=== PATIENT | male | born 1985 | race Two or more races ===

== ENCOUNTER 2016-03-12 11:43 | Emergency (ER) | payer OTHER ==
[~2016-03-12] VITALS: Ht 177.8 cm; Wt 81.6 kg
[2016-03-12] MEDS ORDERED: FAMOTIDINE 20 MG/2 ML VIAL IVP ONE (12:30)
[2016-03-12] MEDS ORDERED: LIDO:MAALOX:DONNATAL 1:1:1 15 ML SINGLE DOSE SWSW ONE (12:30)
[2016-03-12 13:11] LABS: ANION GAP 12 (6-14); BLOOD UREA NITROGEN 11 mg/dL (8-26); CALCIUM 9.4 mg/dL (8.5-10.1); CARBON DIOXIDE 26 mmol/L (21-32); CHLORIDE 103 mmol/L (98-107); CREATININE 0.9 mg/dL (0.7-1.3); GFR 98.4; GLUCOSE 104 mg/dL (70-99); POTASSIUM 4.2 mmol/L (3.5-5.1); SODIUM 141 mmol/L (136-145)
[2016-03-12 13:12] LABS: BASO % 1 % (0-3); EOS % 1 % (0-3); HEMATOCRIT 45.4 % (39.0-53.0); HEMOGLOBIN 15.2 g/dL (13.0-17.5); LYMPH # 2.4 x10^3/uL (1.0-4.8); LYMPH % 38 % (24-48); MEAN CORPUSCULAR HEMOGLOBIN 31 pg (25-35); MEAN CORPUSCULAR HGB CONC 34 g/dL (31-37); MEAN CORPUSCULAR VOLUME 91 fL (79-100); MONO % 7 % (0-9); NEUT % 53 % (31-73); PLATELET COUNT 195 x10^3/uL (140-400); RED BLOOD COUNT 4.97 x10^6/uL (4.30-5.70); RED CELL DISTRIBUTION WIDTH 12.8 % (11.5-14.5); WHITE BLOOD COUNT 6.2 x10^3/uL (4.0-11.0)
[2016-03-12 13:17] LABS: ALBUMIN 4.3 g/dL (3.4-5.0); ALK PHOS 67 U/L (46-116); ALT (SGPT) 85 U/L (16-63); AST (SGOT) 42 U/L (15-37); DIRECT BILIRUBIN < 0.1 mg/dL (0.0-0.2); TOTAL BILIRUBIN 0.4 mg/dL (0.2-1.0)
[2016-03-12] MEDS ORDERED: FAMO20TA5 PO (13:44)
--- NOTE | 2016-03-12 13:44 | PHYS DOC ---
Past Medical History Past Medical History: Anxiety, GERD Past Surgical History: No Surgical History Alcohol Use: None Drug Use: None Adult General Chief Complaint Chief Complaint: ABDOMINAL PAIN HPI HPI Patient is a 30 year old male who presents with one month of epigastric abdominal discomfort. He has a constant burning pain and intermittent aching pain. States that he is undergoing significant stress over the past month. He has been evaluated for this some years ago, but did not undergo any imaging or surgery or EGD. He is taking some narcotic pain medicine as prescribed from his primary care doctor, but he is not otherwise taking medication. He is able to eat without nausea or pain. He denies diarrhea or constipation or dysuria. He denies fever or chills. No bloody or dark stools. Review of Systems Review of Systems Constitutional: Denies fever or chills [] Eyes: Denies change in visual acuity, redness, or eye pain [] HENT: Denies nasal congestion or sore throat [] Respiratory: Denies cough or shortness of breath [] Cardiovascular: No additional information not addressed in HPI [] GI: Denies nausea, vomiting, bloody stools or diarrhea [] : Denies dysuria or hematuria [] Musculoskeletal: Denies back pain or joint pain [] Integument: Denies rash or skin lesions [] Neurologic: Denies headache, focal weakness or sensory changes [] Endocrine: Denies polyuria or polydipsia [] Current Medications Current Medications Current Medications Medications (Trade) Dose Ordered Sig/Matthew Start Time Stop Time Status Last Admin Dose Admin Famotidine (Pepcid) 20 mg 1X ONCE 03/12/16 12:30 03/12/16 12:38 DC 03/12/16 13:01 20 MG Multi-Ingredient Mouthwash/Gargle (Gi Cocktail Single Dose) 15 ml 1X ONCE 03/12/16 12:30 03/12/16 12:38 DC 03/12/16 13:02 15 ML Pantoprazole Sodium (Protonix) 40 mg 1X ONCE 03/12/16 13:45 03/12/16 13:46 DC 03/12/16 13:49 40 MG Allergies Allergies Allergies Coded Allergies Type Severity Reaction Last Updated Verified No Known Drug Allergies 03/12/16 No Physical Exam Physical Exam Constitutional: Well developed, well nourished, no acute distress, non-toxic appearance. [] HENT: Normocephalic, atraumatic, bilateral external ears normal, oropharynx moist, nose normal. [] Eyes: PERRLA, EOMI. [] Neck: Normal range of motion, supple. [] Cardiovascular:Heart rate regular rhythm [] Lungs & Thorax: Bilateral breath sounds clear to auscultation [] Abdomen: Bowel sounds normal, soft, mild epigastric tenderness, no guarding or rebound. [] Skin: Warm, dry, no erythema, no rash. [] Back: No tenderness, no CVA tenderness. [] Extremities: No tenderness, ROM intact, no edema. [] Neurologic: Alert and oriented X 3, normal motor function, normal sensory function, no focal deficits noted. [] Psychologic: Affect normal, judgement normal, mood normal. [] Current Patient Data Vital Signs Vital Signs Date Time Temp Pulse Resp B/P Pulse Ox O2 Delivery O2 Flow Rate FiO2 03/12/16 14:00 58 15 119/74 98 Room Air 03/12/16 12:10 98.6 98.6 Lab Values Laboratory Tests Test 03/12/16 12:05 White Blood Count 6.2x10^3/uL (4.0-11.0) Red Blood Count 4.97x10^6/uL (4.30-5.70) Hemoglobin 15.2g/dL (13.0-17.5) Hematocrit 45.4% (39.0-53.0) Mean Corpuscular Volume 91fL (79-100) Mean Corpuscular Hemoglobin 31pg (25-35) Mean Corpuscular Hemoglobin Concent 34g/dL (31-37) Red Cell Distribution Width 12.8% (11.5-14.5) Platelet Count 195x10^3/uL (140-400) Neutrophils (%) (Auto) 53% (31-73) Lymphocytes (%) (Auto) 38% (24-48) Monocytes (%) (Auto) 7% (0-9) Eosinophils (%) (Auto) 1% (0-3) Basophils (%) (Auto) 1% (0-3) Neutrophils # (Auto) 3.3x10^3uL (1.8-7.7) Lymphocytes # (Auto) 2.4x10^3/uL (1.0-4.8) Monocytes # (Auto) 0.4x10^3/uL (0.0-1.1) Eosinophils # (Auto) 0.1x10^3/uL (0.0-0.7) Basophils # (Auto) 0.0x10^3/uL (0.0-0.2) Sodium Level 141mmol/L (136-145) Potassium Level 4.2mmol/L (3.5-5.1) Chloride Level 103mmol/L (98-107) Carbon Dioxide Level 26mmol/L (21-32) Anion Gap 12 (6-14) Blood Urea Nitrogen 11mg/dL (8-26) Creatinine 0.9mg/dL (0.7-1.3) Estimated GFR (Cockcroft-Gault) 98.4 Glucose Level 104mg/dL (70-99) H Calcium Level 9.4mg/dL (8.5-10.1) Total Bilirubin 0.4mg/dL (0.2-1.0) Direct Bilirubin < 0.1mg/dL (0.0-0.2) Aspartate Amino Transferase (AST) 42U/L (15-37) H Alanine Aminotransferase (ALT) 85U/L (16-63) H Alkaline Phosphatase 67U/L (46-116) Total Protein 8.0g/dL (6.4-8.2) Albumin 4.3g/dL (3.4-5.0) Lipase 117U/L (73-393) Laboratory Tests 03/12/16 12:05 Laboratory Tests 03/12/16 12:05 Course & Med Decision Making Course & Med Decision Making Pertinent Labs and Imaging studies reviewed. (See chart for details) Labs are unremarkable. Suspect gastritis versus peptic ulcer disease. He is feeling much better after medications. He is tolerating oral intake. Encouraged GI clinic follow-up. Return precautions given. He understands and agrees with plan. Dragon Disclaimer Dragon Disclaimer This electronic medical record was generated, in whole or in part, using a voice recognition dictation system. Departure Departure Impression: Primary Impression: Epigastric abdominal pain Disposition: HOME, SELF-CARE Condition: STABLE Referrals: NO PCP (PCP) Patient Instructions: Gastritis, Adult, [id number] Additional Instructions: Take famotidine to help with likely gastritis. Follow-up with GI clinic. Please call [phone] for GI clinic appointment. Return for any concerns. Scripts Famotidine 20 Mg Fpoobo17 Mg PO BID #60 TAB Prov:Lyndon HARRELL MD 03/12/16 Lyndon HARRELL MD Mar 12, 2016 13:44
[2016-03-12] MEDS ORDERED: PANTOPRAZOLE 40 MG TABLET. PO ONE (13:45)
[2016-03-12 14:00] VITALS: BP 119/74
== END 2016-03-12 13:50 | disposition home or self-care (01) ==
LOC: ER 11:43
DX: R10.13 Epigastric pain (principal); K21.9 Gastro-esophageal reflux disease without esophagitis
CPT/HCPCS: 36415; 80048; 80076; 83690; 85027; 96374; 99284; S0028